=== PATIENT | female | born 1985 | race Caucasian/White ===

== ENCOUNTER 2018-06-26 16:59 | Emergency (ER) | payer OTHER ==
--- NOTE | 2018-06-26 18:57 | EDM.PDOC ---
ED HPI GENERAL MEDICAL PROBLEM - General Chief Complaint: Cardiovascular Problem Stated Complaint: SOB EPISODE NOW ARM HURTS Time Seen by Provider: 06/26/18 18:39 Source of Information: Reports: Patient, RN Notes Reviewed, Significant Other ( Boyfriend) History Limitations: Reports: No Limitations - History of Present Illness INITIAL COMMENTS - FREE TEXT/NARRATIVE: The patient states that she developed sudden onset symptoms of a racing heart and dyspnea around 16:30 this afternoon, while showering. Her symptoms lasted around 6 minutes, terminating within a couple of minutes of sitting down. The patient's boyfriend states that she appeared to be cyanotic at the time. The patient states that she felt cold, clammy, and lightheaded at the time. After his symptoms resolved, she then developed left upper arm pain, which resolved after about 30 minutes. Here in the ED, the patient is completely asymptomatic. No prior similar symptoms. The patient denies recent illness. No recent lower extremity edema. No recent chest pain. It is noted that the patient's oxygen saturation is 100%. The patient's PCP is Carole Mott. 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, Other - Past Surgical History GI Surgical History: Reports: Appendectomy Female Surgical History: Reports: Section (x 2), Tubal Ligation Social & Family History - Family History Family Medical History: Noncontributory - Tobacco Use Smoking Status *Q: Never Smoker - Caffeine Use Caffeine Use: Reports: Coffee - Alcohol Use Alcohol Use History: Yes Alcohol Use Frequency: Socially - Recreational Drug Use Recreational Drug Use: No - Living Situation & Occupation Living situation: Reports: Single, with Family (2 kids) Occupation: Employed ([employer]) ED ROS GENERAL - Review of Systems Review Of Systems: ROS reveals no pertinent complaints other than HPI. ED EXAM, GENERAL - Physical Exam Exam: See Below Exam Limited By: No Limitations General Appearance: Alert, WD/WN, No Apparent Distress Eye Exam: Bilateral Eye: EOMI, Normal Inspection Ears: Normal External Exam, Hearing Grossly Normal Nose: Normal Inspection Throat/Mouth: Normal Inspection, Normal Lips, Normal Voice, No Airway Compromise Head: Atraumatic, Normocephalic Neck: Normal Inspection, Full Range of Motion Respiratory/Chest: No Respiratory Distress, Lungs Clear, Normal Breath Sounds, No Accessory Muscle Use Cardiovascular: Normal Peripheral Pulses, Regular Rate, Rhythm, No Edema, No Gallop, No JVD, No Murmur, No Rub Peripheral Pulses: 4+: Radial (L), Radial (R) GI/Abdominal: Normal Bowel Sounds, Soft, Non-Tender, No Organomegaly, No Distention, No Abnormal Bruit, No Mass (Female) Exam: Deferred Rectal (Female) Exam: Deferred Back Exam: Normal Inspection, Full Range of Motion, NT Extremities: Normal Inspection, Normal Range of Motion, No Pedal Edema, Normal Capillary Refill Neurological: Alert, Oriented, Normal Cognition, No Motor/Sensory Deficits Psychiatric: Normal Affect Skin Exam: Warm, Dry, Intact, Normal Color, No Rash EKG INTERPRETATION EKG Date: 06/26/18 Time: 19:02 Rhythm: NSR Rate (Beats/Min): 77 [place]: Normal P-Wave: Present QRS: Normal (Early transition) ST-T: Normal QT: Normal Comparison: NA - No Prior EKG Course - Vital Signs Last Recorded V/S: Last Vital Signs Temp 36.8 C 06/26/18 17:06 Pulse 73 06/26/18 17:06 Resp 16 06/26/18 17:06 BP 152/84 H 06/26/18 17:06 Pulse Ox 100 06/26/18 17:06 Orthostatic Blood Pressure [ 116/71 Standing] Orthostatic Blood Pressure [ 110/61 Sitting] Orthostatic Blood Pressure [ 111/56 Supine] - Orders/Labs/Meds Orders: Active Orders 24 hr Category Date Time Status EKG Documentation Completion [RC] STAT Care 06/26/18 18:54 Active Orthostatic Vital Signs [RC] STAT Care 06/26/18 18:54 Active Chest 2V [CR] Stat Exams 06/26/18 18:54 Taken Labs: Laboratory Tests 06/26/18 06/26/18 06/26/18 Range/Units 19:10 19:10 19:10 WBC 11.30 H (3.98-10.04) K/mm3 RBC 4.63 (3.98-5.22) M/mm3 Hgb 13.9 (11.2-15.7) gm/L Hct 42.4 (34.1-44.9) % MCV 91.6 (79.4-94.8) fl MCH 30.0 (25.6-32.2) pg MCHC 32.8 (32.2-35.5) g/dl RDW Std Deviation 43.2 (36.4-46.3) fL Plt Count 265 (182-369) K/mm3 MPV 10.1 (9.4-12.3) fl Neutrophils % (Manual) 85 H (40-60) % Band Neutrophils % 0 (0-10) % Lymphocytes % (Manual) 13 L (20-40) % Atypical Lymphs % 0 % Monocytes % (Manual) 1 L (2-10) % Eosinophils % (Manual) 1 (0.7-5.8) % Basophils % (Manual) 0 L (0.1-1.2) Platelet Estimate Adequate RBC Morph Comment Normal D-Dimer, Quantitative < 0.19 L (0.19-0.50) mg/L Puncture Site ABG pH (7.35-7.45) ABG pCO2 (35.0-45.0) mmHg ABG pO2 (80.0-100.0) mmHg ABG HCO3 (22.0-26.0) meq/L ABG O2 Saturation (96.0-97.0) % ABG Base Excess (-2-2.0) A-a Gradient mmHg O2 Delivery Device FiO2 (21.00-100.00) % Sodium 141 (136-145) mEq/L Potassium 3.9 (3.5-5.1) mEq/L Chloride 106 (98-107) mEq/L Carbon Dioxide 26 (21-32) mEq/L Anion Gap 12.9 (5-15) BUN 19 H (7-18) mg/dL Creatinine 0.9 (0.55-1.02) mg/dL Est Cr Clr Drug Dosing 84.01 mL/min Estimated GFR (MDRD) > 60 (>60) mL/min BUN/Creatinine Ratio 21.1 H (14-18) Glucose 104 (74-106) mg/dL Calcium 9.1 (8.5-10.1) mg/dL Magnesium 2.0 (1.8-2.4) mg/dl Total Bilirubin 0.2 (0.2-1.0) mg/dL AST 20 (15-37) U/L ALT 37 (14-59) U/L Alkaline Phosphatase 66 (46-116) U/L Troponin I < 0.017 (0.00-0.056) ng/mL Total Protein 6.9 (6.4-8.2) g/dl Albumin 3.5 (3.4-5.0) g/dl Globulin 3.4 gm/dL Albumin/Globulin Ratio 1.0 (1-2) TSH 3rd Generation 2.125 (0.358-3.74) uIU/mL Urine Color (Yellow) Urine Appearance (Clear) Urine pH (5.0-8.0) Ur Specific [place] (1.005-1.030) Urine Protein (Negative) Urine Glucose (UA) (Negative) Urine Ketones (Negative) Urine Occult Blood (Negative) Urine Nitrite (Negative) Urine Bilirubin (Negative) Urine Urobilinogen (0.2-1.0) Ur Leukocyte Esterase (Negative) Urine RBC (0-5) /hpf Urine WBC (0-5) /hpf Ur Epithelial Cells (0-5) /hpf Urine Bacteria (FEW) /hpf Urine Mucus (FEW) /hpf Urine HCG, Qual (NEGATIVE) 06/26/18 06/26/18 06/26/18 Range/Units 19:30 19:40 19:40 WBC (3.98-10.04) K/mm3 RBC (3.98-5.22) M/mm3 Hgb (11.2-15.7) gm/L Hct (34.1-44.9) % MCV (79.4-94.8) fl MCH (25.6-32.2) pg MCHC (32.2-35.5) g/dl RDW Std Deviation (36.4-46.3) fL Plt Count (182-369) K/mm3 MPV (9.4-12.3) fl Neutrophils % (Manual) (40-60) % Band Neutrophils % (0-10) % Lymphocytes % (Manual) (20-40) % Atypical Lymphs % % Monocytes % (Manual) (2-10) % Eosinophils % (Manual) (0.7-5.8) % Basophils % (Manual) (0.1-1.2) Platelet Estimate RBC Morph Comment D-Dimer, Quantitative (0.19-0.50) mg/L Puncture Site Lt radial ABG pH 7.41 (7.35-7.45) ABG pCO2 37.8 (35.0-45.0) mmHg ABG pO2 86.0 (80.0-100.0) mmHg ABG HCO3 23.3 (22.0-26.0) meq/L ABG O2 Saturation 96.9 (96.0-97.0) % ABG Base Excess -0.6 (-2-2.0) A-a Gradient 1 mmHg O2 Delivery Device Room air FiO2 21.00 (21.00-100.00) % Sodium (136-145) mEq/L Potassium (3.5-5.1) mEq/L Chloride (98-107) mEq/L Carbon Dioxide (21-32) mEq/L Anion Gap (5-15) BUN (7-18) mg/dL Creatinine (0.55-1.02) mg/dL Est Cr Clr Drug Dosing mL/min Estimated GFR (MDRD) (>60) mL/min BUN/Creatinine Ratio (14-18) Glucose (74-106) mg/dL Calcium (8.5-10.1) mg/dL Magnesium (1.8-2.4) mg/dl Total Bilirubin (0.2-1.0) mg/dL AST (15-37) U/L ALT (14-59) U/L Alkaline Phosphatase (46-116) U/L Troponin I (0.00-0.056) ng/mL Total Protein (6.4-8.2) g/dl Albumin (3.4-5.0) g/dl Globulin gm/dL Albumin/Globulin Ratio (1-2) TSH 3rd Generation (0.358-3.74) uIU/mL Urine Color Yellow (Yellow) Urine Appearance Clear (Clear) Urine pH 7.0 (5.0-8.0) Ur Specific [place] 1.020 (1.005-1.030) Urine Protein 1+ H (Negative) Urine Glucose (UA) Negative (Negative) Urine Ketones Negative (Negative) Urine Occult Blood Negative (Negative) Urine Nitrite Negative (Negative) Urine Bilirubin Negative (Negative) Urine Urobilinogen 0.2 (0.2-1.0) Ur Leukocyte Esterase Negative (Negative) Urine RBC 0-5 (0-5) /hpf Urine WBC 0-5 (0-5) /hpf Ur Epithelial Cells 10-20 H (0-5) /hpf Urine Bacteria Few (FEW) /hpf Urine Mucus Few (FEW) /hpf Urine HCG, Qual Negative (NEGATIVE) - Re-Assessments/Exams Free Text/Narrative Re-Assessment/Exam: 06/26/18 18:55 The cause of the patient's symptoms is not immediately clear. She may have suffered a nonsustained tachycardia, although we will not be able to make that diagnosis, as she was not wearing a monitor, unless her symptoms recur while here in the ED. It is also possible that the patient suffered a PE. I note that the patient's oxygen saturation is 100% on room air, indicating that she is hyperventilating. Hyperventilation syndrome could also account for most of her symptoms, with the exception of cyanosis, if that in fact was present. I have ordered an extensive workup, including an ECG, orthostatics, chest x-ray, an ABG , bloodwork, a urinalysis, and a urine test. 06/26/18 19:49 The patient is not orthostatic. 06/26/18 20:40 2-view chest radiograph appears to be grossly normal. Cardiac silhouette is within normal limits. No pulmonary vascular congestion. No pleural effusions. No focal infiltrate. No pneumothorax. Formal read per the Radiologist pending. 06/26/18 20:46 Test results discussed with the patient and her boyfriend. Gonzalez's workup is entirely unremarkable, and does not explain the cause of her symptoms. We have been able to rule out potential causes, such as orthostasis, a pulmonary embolus , significant electrolyte abnormalities, severe anemia, hyperthyroidism, sepsis , and , however, we have not been able to rule out the possibility of a nonsustained tachydysrhythmia. I went to the patient that in order to do so, the patient would need to be on a monitor. That will be difficult, as her last similar episode was about 2 years ago, and the patient can't wear a Holter monitor for 2 years. I recommended that if she starts to have similar symptoms in the future, that she follow-up with her PCP, Carole Mott, for possible referral to a Submarine Operator. Departure - Departure Time of Disposition: 20:48 Disposition: Home, Self-Care 01 Condition: Good Clinical Impression: Rapid palpitations Referrals: Carole Mott PA-C [Primary Care Provider] - Forms: ED Department Discharge Additional Instructions: You were seen in the emergency room after experiencing a brief episode of a racing heart with shortness of breath, possible cyanosis, feeling cold and clammy, and lightheaded, followed by right upper arm discomfort. Workup in the ER included blood work, an arterial blood gas, positional blood pressure checks, a urinalysis, a urine test, a chest x-ray, and an ECG. Your entire workup was unremarkable, and does not explain the cause of your symptoms. You are not dehydrated. You do not have pneumonia or a collapsed lung. You're not anemic. There is no sign of an infection. No electrolyte abnormalities were found. You have not suffered a heart attack. You do not have a blood clot in your lungs. You are not hyperthyroid. You do not have a urinary tract infection, you are not , and no abnormal rhythms were found on your ECG or on telemetry monitoring. The cause of your symptoms is unknown, but could be due to an abnormal heart rhythm. The only way to determine that would be to be wearing a heart monitor. If your symptoms recur, please follow-up with your PCP, Carole Mott, to discuss the possibility of referral to a heart doctor. If any other problems, please do not hesitate to return to the ER. - My Orders Last 24 Hours: My Active Orders 06/26/18 18:54 EKG Documentation Completion [RC] STAT Orthostatic Vital Signs [RC] STAT Chest 2V [CR] Stat - Assessment/Plan Last 24 Hours: My Active Orders 06/26/18 18:54 EKG Documentation Completion [RC] STAT Orthostatic Vital Signs [RC] STAT Chest 2V [CR] Stat
--- NOTE | 2018-06-27 09:39 | CR ---
Chest: Two views of the chest were obtained. Comparison: No prior chest x-ray. Heart size and mediastinum are within normal limits. Lungs are clear. Bony structures are unremarkable. Impression: 1. Nothing acute is seen on two-view chest x-ray. Diagnostic code #1
== END 2018-06-26 21:05 | disposition home or self-care (01) ==
LOC: JD.ED 16:59
DX: R00.2 Palpitations (principal)
CPT/HCPCS: 36415; 36600; 71046; 71046-26; 80053; 81001; 81025; 82803; 83735; 84443; 84484; 85007; 85027; 85379; 93005; 93010; 99283; 99285-25